=== PATIENT | male | born 1995 | race Asian ===

== ENCOUNTER → 2016-05-29 11:00 | Day surgery (SDC) | payer OTHER ==
[~2016-05-29 11:00] MED LIST: Lidocain 1% EPI 1:100,000 * 30 ML MDV ONE; Sodium Bicarbonate 8.4% SYR* 10 ML SYRINGE ONE; ceFAZolin 2 GM PREMIX (*) 2 GM/50 ML BAG IVPB ONE
[2016-05-29 14:42] VITALS: BP 134/72
--- NOTE | 2016-05-30 13:19 | OP ---
DATE OF OPERATION: 05/29/16 - [facility] DATE OF : [birth year] SURGEON: Armando Au MD DRAFTER CARTOGRAPHIC: CASH Dumont ANESTHESIOLOGIST: None. ANESTHESIA: Local only with 1% lidocaine with epinephrine. 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 OPERATIVE PROCEDURE: 1. Right extensor pollicis longus tendon centralization. 2. Right extensor indicis proprius tendon transfer to the base of the right thumb proximal phalanx. 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 He presented to my office with an inability that has been a bit progressive over the last couple of years to fully extend at the metacarpophalangeal joint. If he is able to bring the thumb within the full extension and hyperextend the IP joint, he is able to keep the thumb up into full extension at the MP joint but short of doing this, he is unable to generate full extension of the joint. This had been impacting his ability to perform all the activities he wanted to do and is bothersome to him. We talked about risks and benefits and he had elected to proceed with surgery. ESTIMATED BLOOD LOSS: 10 mL. COMPLICATIONS: None. FINDINGS: Full subluxation of the EPL tendon into the first web space with flexion of the MP joint. After correct centralization of the tendon, he had improved MP joint extension, but not full. I therefore transferred the EIP tendon over to the base of the thumb proximal phalanx to assist with this. The EPB tendon was indeed absent as was expected. DESCRIPTION OF PROCEDURE: Oh was seen in the preoperative holding area and the correct side and site and procedure were identified. I then had a time- out and then infiltrated the operative area with 30 cc of 1% lidocaine with epinephrine and some bicarbonate. We then waited about 20 to 30 minutes and came back to the operating room. The arm was prepped and draped in the usual fashion and a time-out was performed. I started by making a curvilinear incision over the MP joint of the thumb. Full -thickness flaps were raised off of the paratenon and flaps were sewed back. I then had him flex the thumb down and the EPL tendon was noted to fully subluxate down into the first web space. I then placed the suture and to provisionally to centralize the extensor tendon. I then had him extend the thumb and the MP joint extension was much better. I therefore mobilized the EPL tendon proximally from all of its adhesions. I then did a 60:40 split, just leaving the tendon intact distally and a long smaller tail of tendon coming back proximally. I then looped this under the EPL tendon distally and around the collateral ligament and then brought it back up to the intact EPL tendon and then weaved it to the intact limb of the EPL tendon in Pulvertaft fashion. The tendon transfer was secured with some 4-0 Ethibond suture. I then had him flex the thumb down and then bring it back up. The MP joint extension was much improved from where it has been about the 50 or 60 degree lag preoperatively, it is now about a 20 degree lag. I let the drapes down and showed him the improvement. He wanted to see if he could get full MP joint extension. I thought this was very reasonable. I then made a longitudinal incision over the MP joint of the index finger. The EDC and EIP tendons were identified. I then made a second longitudinal incision just distal to Otoniel tubercle. The EPL tendon was identified proximally. I then released the EIP tendon distally at the level of the sagittal bands. The EIP tendon was brought to the proximal wound. It was then delivered proximal to the extensor retinaculum and the muscle and tendon were transposed into the subcutaneous tissue. I then tubularized the distal aspect of the EIP tendon with some 4-0 Prolene suture. I then used a Ruiz tendon passer to deliver the suture tails and tendon into the distal thumb wound. At this point, I went distal to the sagittal band and just off the radial aspect of the EPL tendon, I subperiosteally released the soft tissue off the bone of the proximal phalanx, dorsal aspect. I then used some small drill bits to meet 2 openings in the cortices of the dorsal proximal phalanx. These 2 drill holes were connected under the cortical bone leaving a 6 mm to 7 mm bony bridge. A 0 Prolene suture was delivered through the bony tunnel and then this was used as a suture shuttle to deliver the 2 tails of the Prolene suture that had been sowed into the EIP tendon. The EIP tendon was then delivered through the bone tunnel and root back onto itself and sowed back on to itself via Pulvertaft weave fashion and the tendon transfer was secured with some multiple 3-0 Ethibond sutures. I then had him actively open and close the hand. He was able to fully flex the MP joint and he was also able to fully extend the MP joint. We let the drapes down. I had him do this multiple times, so he was able fully flex and extend that joint. Everything was looking good, so I went ahead and irrigated the wound. The hemostasis was obtained and the wounds were closed each with 4-0 nylon sutures. All the wounds were dressed with Xeroform, 4x4, sterile Webril, and a thumb spica splint was placed keeping the thumb MP joint in extension. The patient was then taken to recovery room in stable condition. POSTOPERATIVE PLAN: I am going to see him back in 1 week's time and we are going to send him back over to [facility] to begin working on hand therapy and tendon re-training. CC: [place], [place]* [id number]/[facility] #: [id number] MTDD
== END | disposition home or self-care (01) ==
LOC: OREAST 11:00
PROVIDERS: ATTEND Orthopaedic Surgery Hand Surgery
DX: M25.341 Other instability, right hand (principal)
CPT/HCPCS: J0690

== ENCOUNTER 2016-08-04 06:59 | Day surgery (SDC) | payer OTHER ==
--- NOTE | 2016-08-01 17:23 | HP ---
PREOPERATIVE HISTORY AND PHYSICAL: DATE OF SURGERY/ADMISSION: 08/04/16 [facility] DATE OF OFFICE VISIT/ENCOUNTER: 07/27/16 ATTENDING SURGEON: Jazmin Yin MD (DICTATED BY CASH RAMESH) PROCEDURE: Right thumb extensor tenolysis and possible extensor pollicis longus tendon imbrication. CHIEF COMPLAINT: Right thumb pain and lack of motion. HISTORY OF PRESENT ILLNESS: This is a 20-year-old male who was treated by Dr. Au for a right thumb extensor pollicis longus tendon subluxation. He underwent a centralization of his EPL tendon and transfer of his extensor indicis proprius tendon on 05/29/16. Although he had very good active motion of his right thumb IP and MP joints at the end of the procedure, he, now 2 months postop, complains of inability to flex his MP joint and to extend his IP joint. The patient was referred to Dr. Yin for a second opinion. After clinical evaluation, the patient is suspected to have right thumb extensor tendon adhesions, and Dr. Yin is recommending surgical intervention at this time. The patient has consented to proceed. PAST SURGICAL HISTORY: Right thumb surgery by Dr. Au, 05/29/16. CURRENT REGULAR MEDICATIONS: None. ALLERGIES: No known drug allergies. FAMILY MEDICAL HISTORY: Cancer. SOCIAL HISTORY: The patient is a senior studying computer science. He denies tobacco use. He does admit to smoking marijuana on occasion and admits to alcohol intake on regular occasion. REVIEW OF SYSTEMS: General: Negative for fevers, chills, or night sweats. No known anesthesia problems. HEENT: Negative for headache, lightheadedness, or syncopal episodes. Integumentary: Negative for abrasions, lesions or open wounds. Cardiothoracic: Negative for hypertension, chest pain, palpitations or edema. Pulmonary: Negative for shortness of breath with exertion, chronic cough or COPD. GI: Negative for nausea, vomiting, diarrhea, constipation, or GERD. : Negative for nocturia, urinary frequency, urgency, history of UTIs or kidney problems. Musculoskeletal: Positive for current complaint, negative for chronic or intermittent back pain or history of fractures. Neurological: Negative for paresthesias, numbness, history of seizure, stroke or epilepsy. Endocrine: Negative for diabetes and thyroid issues. Hematologic: Negative for easy bruising, anemia, excessive bleeding, history of DVT. Infectious Disease: Negative for history of MRSA, hepatitis C, and HIV. PHYSICAL EXAMINATION GENERAL: Well-developed, well-nourished 20-year-old male in no acute distress. VITAL SIGNS: Height 5 feet 10 inches, weight 170 pounds. Pulse rate 80, blood pressure 114/72. HEENT: Normocephalic and atraumatic. Pupils are equal, round, reactive to light and accommodation. Extraocular movements are intact. NECK: Supple. No palpable lymph nodes. Throat is clear. PULMONARY: Lungs are clear to auscultation bilaterally. No wheezes, rales, or rhonchi. CARDIOTHORACIC: Regular rate and rhythm. S1 and S2. No murmurs, rubs, or gallops. No edema. ABDOMEN: Positive bowel sounds, soft, nontender. NEUROLOGIC: Alert and oriented x3. Cranial nerves II through XII are intact. Sensation is intact to light touch. PERIPHERAL VASCULAR: 2+ radial and ulnar pulses. Negative David test. MUSCULOSKELETAL: On evaluation of the right upper extremity, he has well- healed incisions over the dorsal aspect of the wrist just ulnar to Otoniel's tubercle at the MP joint of the index finger where the EIP tendon was harvested and at the MP joint of his thumb dorsally. He has quite a bit of thickening around the MP joint and arc of flexion/extension only about 30 degrees at the MP joint. The joint is in about 0 degrees of extension at rest. The IP joint rests at about 40 degrees of flexion and he has full passive extension and flexion. With the MP joint locked in flexion, he does have a little bit of active extension of his IP joint, but he does appear to have an intact EPL tendon. IMPRESSION: Extensor tendon adhesions after extensor pollicis longus centralization and stabilization of the MP joint, right thumb. PLAN: The patient is scheduled to undergo a right thumb extensor tenolysis and possible extensor pollicis longus tendon imbrication with Dr. Yin on . He will return to the office 10 to 14 days postop for followup and suture removal. He has some [place] left over from his previous surgery that he will plan on using for postoperative pain management. CASH RAMESH [id number]/[facility] #: [id number] [facility] CENTERAlisa
[2016-08-04] MEDS ORDERED: ceFAZolin 2 GM PREMIX(*) 2 GM/50 ML BAG IVPB ONE (07:43)
[2016-08-04] MEDS ORDERED: Lidocain 1% EPI 1:100,000 * 30 ML MDV ONE (07:44)
[2016-08-04] MEDS ORDERED: Sodium Bicarbonate 8.4% IV* 50 ML VIAL ONE (07:44)
[2016-08-04 09:41] VITALS: BP 129/69
--- NOTE | 2016-08-22 04:41 | OP ---
DATE OF OPERATION: 08/04/16 [facility] DATE OF : [birth year] SURGEON: Jazmin Yin MD MOTION AND TIME STUDY TEACHER: Dr. Au. ANESTHESIA: Local. PRE-OP DIAGNOSIS: Extensor tendon adhesion, status post tendon transfer of the right thumb. POST-OP DIAGNOSIS: Extensor tendon adhesion, status post tendon transfer of the right thumb. OPERATIVE PROCEDURE: Right thumb extensor tenolysis. ESTIMATED BLOOD LOSS: Less than 20 cc. INDICATION FOR PROCEDURE: Oh is a 20-year-old male who had right thumb surgery done by Dr. Au for tendon transfer to improve his MP joint extension and to re-centralize his EPL tendon. He developed dense extensor tendon adhesions and has a significant extensor lag at his thumb IP joint. He presents for extensor tenolysis of the right thumb. DESCRIPTION OF PROCEDURE: The patient was brought to the operating room. He was given in the preop area a block with 1% lidocaine with epinephrine. Skin of his right hand and forearm was prepped and draped in the usual sterile fashion. The previous scar was incised and extended a bit proximally and distally. Because of the abundant scar tissue, there was more bleeding than anticipated, therefore the hand and forearm were exsanguinated and the tourniquet elevated to 250 mmHg. The patient tolerated the tourniquet well. The extensor tendon was located with normal tissue proximal and distal to the area of the surgery and then carefully dissected out until it was completely released. The patient was awake, so he was able to demonstrate full active extension of the thumb IP joint and flexion of the thumb IP joint as well. There were pretty considerable adhesions at the MP joint, but it was decided to not take these down so that we could maintain the thumb MP extension that we had when we brought the patient to the operating room in the first place. The patient demonstrated again very good flexion and extension of the thumb IP joint in the operating room full extension actively, in fact, wound was copiously irrigated with saline and skin edges were reapproximated with 3-0 nylon suture. Again after the wound closure, the patient was able to flex and extend the thumb IP joint very nicely. The wound was dressed with Xeroform, 4x4 , Webril, and an Agustin wrap. The patient tolerated the procedure well and was brought to the recovery room in good condition. [id number]/[facility] #: [id number] [facility]
== END 2016-08-04 09:36 | disposition home or self-care (01) ==
LOC: OREAST 06:59
PROVIDERS: ATTEND Orthopaedic Surgery
DX: M65.841 Other synovitis and tenosynovitis, right hand (principal)
CPT/HCPCS: J0690